=== PATIENT | male | born 1985 | race Caucasian/White ===

== ENCOUNTER 2018-12-20 10:59 | Emergency (ER) | payer MEDICAID ==
[~2018-12-20] VITALS: Ht 182.9 cm; Wt 102.3 kg
[~2018-12-20 10:59] MED LIST: CEPH250T PO; ONDA8TAB6 PO
[2018-12-20] MEDS ORDERED: LORazepam 2 mg/ml vial IM ONE (12:45)
[2018-12-20] MEDS ORDERED: haloperidol 5mg tablet PO PRN (12:45)
[2018-12-20] MEDS ORDERED: LORazepam 1 MG tablet PO PRN (12:45)
[2018-12-20] MEDS ORDERED: diphenhydrAMINE 25mg capsule PO PRN (12:45)
[2018-12-20] MEDS ORDERED: haloperidol lactate 5mg/ml inj IM ONE (12:45)
[2018-12-20] MEDS ORDERED: diphenhydrAMINE 50 mg/ml inj IM ONE (12:45)
[2018-12-20 12:54] LABS: BASOPHILS # (AUTO) 0.1 X10'3 (0-0.2); BASOPHILS % (AUTO) 0.4 % (0-1); EOSINOPHILS % (AUTO) 0.3 % (0-6); HEMATOCRIT 46.4 % (42.0-52.0); HEMOGLOBIN 15.4 g/dl (14.0-17.9); LYMPHOCYTES # (AUTO) 3.2 X10'3 (1.1-4.8); LYMPHOCYTES % (AUTO) 23.6 % (21-51); MEAN CORPUSCULAR HEMOGLOBIN 29.7 PG (27.0-31.0); MEAN CORPUSCULAR HGB CONC 33.3 g/dL (33.0-36.5); MEAN PLATELET VOLUME 8.1 FL (7.4-10.4); MONOCYTES % (AUTO) 7.6 % (2-12); NEUTROPHILS # (AUTO) 9.2 X10'3 (1.8-7.7); NEUTROPHILS % (AUTO) 68.1 % (42-75); PLATELET COUNT 243 X10'3 (140-440); RED BLOOD COUNT 5.21 X10'6 (4.70-6.10); RED CELL DISTRIBUTION WIDTH 13.5 % (11.5-14.5); WHITE BLOOD COUNT 13.5 X10'3 (4.5-11.0)
[2018-12-20 13:09] LABS: ALANINE AMINOTRANSFERASE 32 U/L (12-78); ALBUMIN 4.6 G/DL (3.4-5.0); ALBUMIN/GLOBULIN RATIO 1.3 (1.1-1.5); ALKALINE PHOSPHATASE 60 IU/L (46-116); ANION GAP 9 (8-16); ASPARTATE AMINO TRANSFERASE 41 U/L (10-37); BILIRUBIN,TOTAL 1.2 MG/DL (0.1-1.0); BLOOD UREA NITROGEN 28 MG/DL (7-18); BUN/CREATININE RATIO 17.5 (5.4-32.0); CALCIUM 9.2 MG/DL (8.5-10.1); CHLORIDE 97 MMOL/L (99-107); ETHANOL < 0.010 GM/DL (0.0-0.010); GLUCOSE 84 MG/DL (70-104); POTASSIUM 3.6 MMOL/L (3.5-5.1); SODIUM 133 MMOL/L (135-145); TOTAL CARBON DIOXIDE 26.6 MMOL/L (24-32); TOTAL PROTEIN 8.2 G/DL (6.4-8.2); eGFR 51 ML/MIN
--- NOTE | 2018-12-20 13:30 | NUR ---
Patient escorted from Bed E in Fast Track to Bed 26 in Overflow via ambulatory, accompanied by three security staff. Patient refusing to change into green gowns. "I'm not staying here. You don't understand. I got to get back to my job at the [employer]. I'm losing time. They'll make me do double the hours. They think I sent a beronica with the wrong truck 1100 miles away. They had to tell him to turn back. I didn't do it but they want to blame me. My father will tell you I know my stuff. He was a automobile tester for 14 years. He taught me all I need to know." Presents as highly agitated with rapid, pressured speech. His voice is loud with an aggressive tone. Patient's eyes are markedly red. States he was "dropped off here by my , my [id number] and my quarantine officer because of anger issues." Patient was medicated with Haldol 10 mg./Ativan 2mg./Benadryl 50 mg. IM at this time due increase comfort and decrease agitation.
--- NOTE | 2018-12-20 13:35 | NUR ---
Patient unable to cooperate with the interview process due to agitation.
--- NOTE | 2018-12-20 13:45 | NUR ---
Served lunch. Ate poorly. Stated "There's nothing I like on this tray."
--- NOTE | 2018-12-20 13:55 | NUR ---
Asleep at this time with the covers pulled over his head. Covers pulled down to check on patients color and breathing. Color and breathing WNL Patient pulled covers back over his head
[2018-12-20 13:57] LABS: CLARITY,URINE SLIGHTLY CLOUDY (Clear); COLOR,URINE YELLOW (Yellow); GLUCOSE, URINE NEGATIVE (Neg); KETONES,URINE 15 mg/dl (Neg); LEUKOCYTE ESTERASE ,URINE SMALL (Neg); NITRITES, URINE NEGATIVE (Neg); OCCULT BLOOD,URINE TRACE-INTACT (Neg); PROTEIN,URINE NEGATIVE (Neg); UROBILINOGEN,URINE 0.2 E.U/dL (0.2-1.0)
[2018-12-20 14:07] LABS: UA COLLECTION TYPE CLN CATCH MIDSTREAM
[2018-12-20 14:10] LABS: MUCUS STRANDS FEW /LPF (Neg); WBC CLUMPS,URINE MODERATE /HPF (NEGATIVE)
[2018-12-20 14:11] LABS: SQUAMOUS EPITHELIAL CELL,UR MODERATE /LPF (FEW); TRANSITIONAL EPI CELLS,URINE MODERATE /HPF
[2018-12-20 14:12] LABS: BACTERIA,URINE 1+ /HPF (Neg); RBC,URINE 0-2 /HPF (0-2); RENAL CELLS, URINE FEW /HPF
[2018-12-20 14:16] LABS: URINE AMPHETAMINE SCREEN POSITIVE (Neg); URINE BARBITUATE SCREEN NEGATIVE (Neg); URINE BENZODIAZEPINES SCREEN NEGATIVE (Neg); URINE CANNABINOID SCREEN POSITIVE (Neg); URINE COCAINE SCREEN NEGATIVE (Neg); URINE METHADONE SCREEN NEGATIVE (Neg); URINE OPIATE SCREEN NEGATIVE (Neg); URINE PHENCYCLIDINE SCREEN NEGATIVE (Neg)
--- NOTE | 2018-12-20 15:00 | NUR ---
Continues to sleep. Color and breathing WNL. Will continue to monitor.
--- NOTE | 2018-12-20 17:39 | NUR ---
Patient has slept the entire afternoon. He can be heard snoring from the nurse's station. Patient within line of sight of staff at all times.
--- NOTE | 2018-12-20 18:27 | NUR ---
PACKET FAXED TO [facility]
--- NOTE | 2018-12-20 19:33 | NUR ---
The patient continues focused on needing to go to work. He has very poor insight and judgement. He was encouraged to eat his dinner which he did.
--- NOTE | 2018-12-20 21:12 | NUR ---
The patient is up to the bathroom.
--- NOTE | 2018-12-20 23:47 | NUR ---
The patient appears to be sleeping
--- NOTE | 2018-12-21 01:41 | NUR ---
The patient appears to be asleep
--- NOTE | 2018-12-21 04:15 | NUR ---
The patient appears to be sleeping but is restless
[2018-12-21 06:01] VITALS: BP 101/54
--- NOTE | 2018-12-21 06:29 | NUR ---
Patient sleeping on right side. No distress observed. Continue to monitor.
--- NOTE | 2018-12-21 08:20 | NUR ---
[facility] evaluating patient. Continue to monitor.
--- NOTE | 2018-12-21 10:30 | NUR ---
[facility] re-evaluating patient. Continue to monitor.
--- NOTE | 2018-12-21 12:10 | NUR ---
Patient is sleeping on left side. No distress observed. Continue to monitor.
--- NOTE | 2018-12-21 13:40 | NUR ---
Patient's 1799 was removed. RN gave patient d/c instructions. Patient verbalized understanding. All questions were answered. Patient ambulatory, steady gait.
== END 2018-12-21 14:03 | disposition home or self-care (01) ==
LOC: ER 11:00
DX: F30.9 Manic episode, unspecified (principal); F15.10 Other stimulant abuse, uncomplicated; F17.200 Nicotine dependence, unspecified, uncomplicated; Z59.0 Homelessness; Z79.899 Other long term (current) drug therapy
CPT/HCPCS: 36415; 80053; 80305; 80320; 81001; 85025; 87088; 96372; 99284; J1200; J1630; J2060; Q0163

== ENCOUNTER 2018-12-31 19:22 | Emergency (ER) | payer MEDICAID ==
[~2018-12-31] VITALS: Ht 182.9 cm; Wt 70.0 kg
[2018-12-31 19:27] VITALS: BP 120/63
[2018-12-31] MEDS ORDERED: proparacaine 0.5% ophthalmic drops 15ml EACHEYE ONE (19:35)
[2018-12-31] MEDS ORDERED: ERYT1OIN6 RIGHTEYE (19:54)
[2019-01-01] MEDS ORDERED: CEPH-571 PO (15:47)
== END 2018-12-31 20:02 | disposition home or self-care (01) ==
LOC: ER 19:22
DX: S05.01XA Injury of conjunctiva and corneal abrasion without foreign body, right eye, initial encounter (principal); H92.02 Otalgia, left ear; F15.90 Other stimulant use, unspecified, uncomplicated; Z79.2 Long term (current) use of antibiotics; Z79.899 Other long term (current) drug therapy; Z59.0 Homelessness; W22.8XXA Striking against or struck by other objects, initial encounter; Y93.89 Activity, other specified; Y92.89 Other specified places as the place of occurrence of the external cause; Y99.8 Other external cause status
CPT/HCPCS: 99283

== ENCOUNTER 2019-01-01 15:38 | Emergency (ER) | payer MEDICAID ==
[~2019-01-01] VITALS: Ht 182.9 cm; Wt 100.0 kg
[~2019-01-01 15:38] MED LIST changes: +ERYT1OIN6 RIGHTEYE
[2019-01-01] MEDS ORDERED: CEPH-571 PO (15:47)
[2019-01-01 16:32] VITALS: BP 137/64
== END 2019-01-01 15:50 | disposition home or self-care (01) ==
LOC: ER 15:38
DX: S90.561A Insect bite (nonvenomous), right ankle, initial encounter (principal); L03.115 Cellulitis of right lower limb; F15.90 Other stimulant use, unspecified, uncomplicated; F17.200 Nicotine dependence, unspecified, uncomplicated; Z79.2 Long term (current) use of antibiotics; Z79.899 Other long term (current) drug therapy; Z59.0 Homelessness; W57.XXXA Bitten or stung by nonvenomous insect and other nonvenomous arthropods, initial encounter; Y93.89 Activity, other specified; Y92.89 Other specified places as the place of occurrence of the external cause; Y99.8 Other external cause status
CPT/HCPCS: 99283

== ENCOUNTER 2019-04-05 16:19 | Emergency (ER) | payer MEDICAID ==
[~2019-04-05 16:19] MED LIST changes: +CEPH-571 PO; -ERYT1OIN6 RIGHTEYE
== END 2019-04-05 17:33 | disposition left against medical advice (07) ==
LOC: ER 16:20
DX: A64 Unspecified sexually transmitted disease (principal); Z53.21 Procedure and treatment not carried out due to patient leaving prior to being seen by health care provider

== ENCOUNTER 2019-04-22 20:03 | Emergency (ER) | payer MEDICAID ==
[~2019-04-22] VITALS: Ht 182.9 cm; Wt 105.0 kg
[2019-04-22 20:06] VITALS: BP 140/85
--- NOTE | 2019-04-22 20:52 | NUR ---
Increased to level GENIE 3 for eval.
[2019-04-22 21:13] LABS: BASOPHILS # (AUTO) 0.1 X10'3 (0-0.2); BASOPHILS % (AUTO) 0.7 % (0-1); EOSINOPHILS # (AUTO) 0.2 X10'3 (0-0.9); EOSINOPHILS % (AUTO) 2.3 % (0-6); HEMATOCRIT 37.6 % (42.0-52.0); HEMOGLOBIN 12.8 g/dl (14.0-17.9); LYMPHOCYTES % (AUTO) 28.1 % (21-51); MEAN CORPUSCULAR HEMOGLOBIN 30.6 PG (27.0-31.0); MEAN CORPUSCULAR VOLUME 89.9 FL (78-98); MEAN PLATELET VOLUME 7.7 FL (7.4-10.4); MONOCYTES # (AUTO) 0.8 X10'3 (0-0.9); MONOCYTES % (AUTO) 7.9 % (2-12); NEUTROPHILS # (AUTO) 6.5 X10'3 (1.8-7.7); PLATELET COUNT 239 X10'3 (140-440); RED BLOOD COUNT 4.18 X10'6 (4.70-6.10); RED CELL DISTRIBUTION WIDTH 14.1 % (11.5-14.5); WHITE BLOOD COUNT 10.7 X10'3 (4.5-11.0)
[2019-04-22 21:29] LABS: ALANINE AMINOTRANSFERASE 29 U/L (12-78); ALBUMIN 3.5 G/DL (3.4-5.0); ALBUMIN/GLOBULIN RATIO 1.2 (1.1-1.5); ALKALINE PHOSPHATASE 88 IU/L (46-116); ANION GAP 11 (8-16); ASPARTATE AMINO TRANSFERASE 31 U/L (10-37); BILIRUBIN,TOTAL 0.2 MG/DL (0.1-1.0); BLOOD UREA NITROGEN 12 MG/DL (7-18); BUN/CREATININE RATIO 10.3 (5.4-32.0); C-REACTIVE PROTEIN 0.63 MG/DL (0.0-0.5); CALCIUM 8.1 MG/DL (8.5-10.1); CHLORIDE 107 MMOL/L (99-107); CREATININE 1.16 MG/DL (0.60-1.10); ETHANOL < 0.010 GM/DL (0.0-0.010); GLUCOSE 113 MG/DL (70-104); POTASSIUM 3.8 MMOL/L (3.5-5.1); SODIUM 142 MMOL/L (135-145); TOTAL CARBON DIOXIDE 24.1 MMOL/L (24-32); TOTAL PROTEIN 6.5 G/DL (6.4-8.2); eGFR 73 ML/MIN
[2019-04-22 22:31] LABS: CLARITY,URINE CLOUDY (Clear); COLOR,URINE YELLOW (Yellow); GLUCOSE, URINE NEGATIVE (Neg); KETONES,URINE NEGATIVE (Neg); LEUKOCYTE ESTERASE ,URINE SMALL (Neg); NITRITES, URINE NEGATIVE (Neg); OCCULT BLOOD,URINE NEGATIVE (Neg); PH,URINE 6.5 (4.8-8.0); PROTEIN,URINE NEGATIVE (Neg)
[2019-04-22 22:32] LABS: UA COLLECTION TYPE CLN CATCH MIDSTREAM
[2019-04-22 22:36] LABS: URINE AMPHETAMINE SCREEN POSITIVE (Neg); URINE BARBITUATE SCREEN NEGATIVE (Neg); URINE BENZODIAZEPINES SCREEN NEGATIVE (Neg); URINE CANNABINOID SCREEN POSITIVE (Neg); URINE COCAINE SCREEN NEGATIVE (Neg); URINE METHADONE SCREEN NEGATIVE (Neg); URINE OPIATE SCREEN NEGATIVE (Neg); URINE PHENCYCLIDINE SCREEN NEGATIVE (Neg)
[2019-04-22 22:37] LABS: BACTERIA,URINE FEW /HPF (Neg); MUCUS STRANDS MANY /LPF (Neg); RBC,URINE NONE SEEN /HPF (0-2); WBC,URINE 50-100 /HPF (0-4)
[2019-04-22 22:39] LABS: SQUAMOUS EPITHELIAL CELL,UR MANY /LPF (FEW)
[2019-04-22] MEDS ORDERED: LORazepam 1 MG tablet PO ONE (22:50)
[2019-04-22] MEDS ORDERED: LORazepam 0.5 MG tablet PO ONE (22:55)
[2019-04-22] MEDS ORDERED: diphenhydrAMINE 25mg capsule PO ONE (23:15)
[2019-04-22] MEDS ORDERED: haloperidol lactate 5mg/ml inj IM ONE (23:15)
--- NOTE | 2019-04-22 23:34 | NUR ---
PT VERY HIGH ENERGY, TALKATIVE, FLIGHT OF IDEAS, BUT COOPERATIVE. PT GIVEN SANDWICH AND JUICE. PT EDUCATED ON HOW TO CLEAN FOR A CLEAN CATCH UA, BUT CLEANSING WIPE UNOPENED WHEN PT PRESENTED NEW SAMPLE FOR LAB. URINE SENT.
[2019-04-22 23:38] LABS: COLOR,URINE YELLOW (Yellow); GLUCOSE, URINE NEGATIVE (Neg); KETONES,URINE NEGATIVE (Neg); LEUKOCYTE ESTERASE ,URINE SMALL (Neg); NITRITES, URINE NEGATIVE (Neg); OCCULT BLOOD,URINE NEGATIVE (Neg); PH,URINE 7.5 (4.8-8.0); PROTEIN,URINE NEGATIVE (Neg)
[2019-04-22 23:44] LABS: CLARITY,URINE SLIGHTLY CLOUDY (Clear); UA COLLECTION TYPE CLN CATCH MIDSTREAM
[2019-04-22 23:45] LABS: BACTERIA,URINE FEW /HPF (Neg); RBC,URINE NONE SEEN /HPF (0-2)
[2019-04-22 23:46] LABS: SQUAMOUS EPITHELIAL CELL,UR FEW /LPF (FEW)
[2019-04-23] MEDS ORDERED: azithromycin 250mg tablet PO ONE (00:50)
[2019-04-23] MEDS ORDERED: DOXY100C43 PO (00:50)
[2019-04-23] MEDS ORDERED: CefTRIAXone 250MG IM Kit w/LIDOcaine IM ONE (00:50)
[2019-04-24] MEDS ORDERED: DOXY100C43 PO (16:05)
== END 2019-04-23 01:29 | disposition home or self-care (01) ==
LOC: ER 20:04
DX: N39.0 Urinary tract infection, site not specified (principal); F15.10 Other stimulant abuse, uncomplicated; Z59.0 Homelessness; Z79.2 Long term (current) use of antibiotics; Z79.899 Other long term (current) drug therapy
CPT/HCPCS: 36415; 71045; 80053; 80305; 80320; 81001; 85025; 85651; 86140; 87088; 87491; 87591; 96372; 99284; J0696; J1630; Q0163

== ENCOUNTER 2019-04-24 15:04 | Emergency (ER) | payer MEDICAID ==
[~2019-04-24] VITALS: Ht 183.5 cm; Wt 81.0 kg
[~2019-04-24 15:04] MED LIST changes: +DOXY100C43 PO
[2019-04-24 15:20] VITALS: BP 126/77
[2019-04-24] MEDS ORDERED: DOXY100C43 PO (16:05)
--- NOTE | 2019-04-24 16:55 | NUR ---
Pt was seen, assessed, and treated by PA. Discharged by RN.
== END 2019-04-24 17:00 | disposition home or self-care (01) ==
LOC: ER 15:04
DX: N39.0 Urinary tract infection, site not specified (principal); F15.10 Other stimulant abuse, uncomplicated; R41.82 Altered mental status, unspecified; Z76.0 Encounter for issue of repeat prescription; Z59.0 Homelessness; Z79.899 Other long term (current) drug therapy
CPT/HCPCS: 99283

== ENCOUNTER 2019-05-07 21:34 | Emergency (ER) | payer MEDICAID ==
[~2019-05-07] VITALS: Ht 182.9 cm; Wt 88.8 kg
[~2019-05-07 21:34] MED LIST changes: -DOXY100C43 PO
[2019-05-07 21:41] VITALS: BP 133/89
== END 2019-05-07 23:15 | disposition home or self-care (01) ==
LOC: ER 21:34
DX: H92.02 Otalgia, left ear (principal); R06.02 Shortness of breath; F15.90 Other stimulant use, unspecified, uncomplicated; F17.200 Nicotine dependence, unspecified, uncomplicated; Z59.0 Homelessness; Z79.2 Long term (current) use of antibiotics; Z79.899 Other long term (current) drug therapy
CPT/HCPCS: 99281

== ENCOUNTER 2019-05-09 17:44 | Emergency (ER) | payer MEDICAID ==
[~2019-05-09] VITALS: Ht 182.9 cm; Wt 83.6 kg
[2019-05-09 17:58] VITALS: BP 123/56
[2019-05-09] MEDS ORDERED: IBUP-1984 PO (19:16)
--- NOTE | 2019-05-09 19:41 | NUR ---
Pt dc ready and wants taxi ride. I asked him where he was headed and he stated he was going home. Pt stated his dad had his car, but was sick and couldnt pick him up. Pt was advised he could call a taxi to transport him at his own expense. Pt then asked for a sandwich as well. Pt began pressuring staff to provide him a taxi ride and was told that we provide that for people who are homeless. Pt then stated "Oh, well I am on the streets" after clearly telling me that he had a home to go to. Pt escorted to lobby by Security.
== END 2019-05-09 19:46 | disposition home or self-care (01) ==
LOC: ER 17:45
DX: H92.02 Otalgia, left ear (principal); R42 Dizziness and giddiness; F15.90 Other stimulant use, unspecified, uncomplicated; Z59.0 Homelessness; Z79.899 Other long term (current) drug therapy
CPT/HCPCS: 99282

== ENCOUNTER 2020-02-07 16:40 | Emergency (ER) | payer MEDICAID ==
[~2020-02-07] VITALS: Ht 182.9 cm; Wt 78.0 kg
[~2020-02-07 16:40] MED LIST changes: -CEPH250T PO
[2020-02-07 16:42] VITALS: BP 141/71
[2020-02-07] MEDS ORDERED: azithromycin 250mg tablet PO ONE (19:30)
[2020-02-07] MEDS ORDERED: CefTRIAXone 250MG IM Kit w/LIDOcaine IM ONE (19:30)
== END 2020-02-07 20:43 | disposition home or self-care (01) ==
LOC: ER 16:41
DX: S42.002A Fracture of unspecified part of left clavicle, initial encounter for closed fracture (principal); A64 Unspecified sexually transmitted disease; M25.512 Pain in left shoulder; F17.200 Nicotine dependence, unspecified, uncomplicated; F15.90 Other stimulant use, unspecified, uncomplicated; Z59.0 Homelessness; Z79.2 Long term (current) use of antibiotics; Z79.899 Other long term (current) drug therapy; X58.XXXA Exposure to other specified factors, initial encounter; Y93.89 Activity, other specified; Y92.89 Other specified places as the place of occurrence of the external cause; Y99.8 Other external cause status
CPT/HCPCS: 36415; 73030; 87491; 87591; 96372; 99284; J0696

== ENCOUNTER 2020-02-12 01:30 | Emergency (ER) | payer MEDICAID ==
[~2020-02-12] VITALS: Ht 182.9 cm; Wt 75.0 kg
[2020-02-12] MEDS ORDERED: LIDOcaine 1% w/epiNEPHrine 1:200,000 30ml vial SQ ONE (01:45)
[2020-02-12] MEDS ORDERED: CEPH250T PO (02:21)
[2020-02-12 02:25] VITALS: BP 116/70
[2020-02-12] MEDS ORDERED: DOXY100C2 PO (17:35)
== END 2020-02-12 02:26 | disposition home or self-care (01) ==
LOC: ER 01:31
DX: S61.411A Laceration without foreign body of right hand, initial encounter (principal); F15.90 Other stimulant use, unspecified, uncomplicated; Z59.0 Homelessness; Z79.899 Other long term (current) drug therapy; W22.8XXA Striking against or struck by other objects, initial encounter; Y93.89 Activity, other specified; Y92.89 Other specified places as the place of occurrence of the external cause; Y99.8 Other external cause status
CPT/HCPCS: 12001; 73130; 99283

== ENCOUNTER 2020-02-12 14:49 | Emergency (ER) | payer MEDICAID ==
[~2020-02-12 14:49] MED LIST changes: +CEPH250T PO
--- NOTE | 2020-02-12 15:55 | NUR ---
PT WAS CALLED X3 TO MAIN ER, NIL, PT SEEN OUT BY THE BUS STOP AND WOULD NOT COME IN WHEN CALLED. PT DEPARTED LBT
--- NOTE | 2020-02-12 15:55 | NUR ---
Called to triage. Informed by registration that patient recieved bathroom code and then left.
[2020-02-12] MEDS ORDERED: DOXY100C2 PO (17:35)
== END 2020-02-12 16:55 | disposition left against medical advice (07) ==
LOC: ER 14:50
DX: S61.419A Laceration without foreign body of unspecified hand, initial encounter (principal); Z53.21 Procedure and treatment not carried out due to patient leaving prior to being seen by health care provider; X58.XXXA Exposure to other specified factors, initial encounter; Y93.9 Activity, unspecified; Y92.89 Other specified places as the place of occurrence of the external cause; Y99.8 Other external cause status

== ENCOUNTER 2020-02-12 16:27 | Emergency (ER) | payer MEDICAID ==
[~2020-02-12] VITALS: Ht 182.9 cm; Wt 90.9 kg
[2020-02-12 16:56] VITALS: BP 111/79
[2020-02-12] MEDS ORDERED: DOXY100C2 PO (17:35)
== END 2020-02-12 17:57 | disposition home or self-care (01) ==
LOC: ER 16:27
DX: S61.411D Laceration without foreign body of right hand, subsequent encounter (principal); F17.200 Nicotine dependence, unspecified, uncomplicated; F15.90 Other stimulant use, unspecified, uncomplicated; Z59.0 Homelessness; Z79.899 Other long term (current) drug therapy; X58.XXXD Exposure to other specified factors, subsequent encounter
CPT/HCPCS: 99283

== ENCOUNTER 2020-02-14 10:51 | Emergency (ER) | payer MEDICAID ==
[~2020-02-14] VITALS: Ht 182.9 cm; Wt 78.5 kg
[~2020-02-14 10:51] MED LIST changes: +DOXY100C2 PO
[2020-02-14] MEDS ORDERED: CEPH250T PO (11:51)
[2020-02-14 12:20] VITALS: BP 130/95
== END 2020-02-14 12:18 | disposition home or self-care (01) ==
LOC: ER 10:52
DX: F15.129 Other stimulant abuse with intoxication, unspecified (principal); Z59.0 Homelessness; Z79.899 Other long term (current) drug therapy
CPT/HCPCS: 99283

== ENCOUNTER 2020-02-24 02:31 | Emergency (ER) | payer MEDICAID ==
[~2020-02-24] VITALS: Ht 182.9 cm; Wt 95.5 kg
[~2020-02-24 02:31] MED LIST changes: -DOXY100C2 PO
[2020-02-24 02:35] VITALS: BP 140/88
== END 2020-02-24 03:02 | disposition left against medical advice (07) ==
LOC: ER 02:32
DX: H92.02 Otalgia, left ear (principal); Z53.21 Procedure and treatment not carried out due to patient leaving prior to being seen by health care provider

== ENCOUNTER 2021-07-21 09:58 | Emergency (ER) | payer MEDICAID ==
[~2021-07-21] VITALS: Ht 188 cm; Wt 81.8 kg
[~2021-07-21 09:58] MED LIST changes: -CEPH250T PO
[2021-07-21 10:03] VITALS: BP 126/80
[2021-07-21] MEDS ORDERED: proparacaine 0.5% ophthalmic drops 15ml EACHEYE ONE (10:10)
[2021-07-21] MEDS ORDERED: erythromycin ophthalmic ointment 1gm tube EACHEYE ONE (10:20)
[2021-07-21] MEDS ORDERED: ERYT1OIN6 EACHEYE (10:22)
== END 2021-07-21 10:35 | disposition home or self-care (01) ==
LOC: ER 09:58
DX: S05.01XA Injury of conjunctiva and corneal abrasion without foreign body, right eye, initial encounter (principal); S05.02XA Injury of conjunctiva and corneal abrasion without foreign body, left eye, initial encounter; F15.90 Other stimulant use, unspecified, uncomplicated; Z59.00 Homelessness unspecified; Z79.2 Long term (current) use of antibiotics; Z79.899 Other long term (current) drug therapy; X58.XXXA Exposure to other specified factors, initial encounter; Y93.89 Activity, other specified; Y92.89 Other specified places as the place of occurrence of the external cause; Y99.8 Other external cause status
CPT/HCPCS: 99283

== ENCOUNTER 2021-08-05 03:11 | Emergency (ER) | payer MEDICAID ==
[~2021-08-05 03:11] MED LIST changes: +ERYT1OIN6 EACHEYE
--- NOTE | 2021-08-05 03:24 | NUR ---
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
--- NOTE | 2021-08-05 03:26 | NUR ---
chest x ray at beside
[2021-08-05 03:36] LABS: BASOPHILS # (AUTO) 0.1 X10'3 (0-0.2); BASOPHILS % (AUTO) 1.2 % (0-1); EOSINOPHILS # (AUTO) 0.2 X10'3 (0-0.9); EOSINOPHILS % (AUTO) 1.8 % (0-6); HEMATOCRIT 43.2 % (42.0-52.0); HEMOGLOBIN 14.4 g/dl (14.0-17.9); LYMPHOCYTES # (AUTO) 2.8 X10'3 (1.1-4.8); LYMPHOCYTES % (AUTO) 32.6 % (21-51); MEAN CORPUSCULAR HEMOGLOBIN 29.2 PG (27.0-31.0); MEAN CORPUSCULAR HGB CONC 33.3 g/dL (33.0-36.5); MEAN CORPUSCULAR VOLUME 87.9 FL (78-98); MEAN PLATELET VOLUME 7.3 FL (7.4-10.4); MONOCYTES # (AUTO) 0.7 X10'3 (0-0.9); MONOCYTES % (AUTO) 8.2 % (2-12); NEUTROPHILS # (AUTO) 4.9 X10'3 (1.8-7.7); NEUTROPHILS % (AUTO) 56.2 % (42-75); PLATELET COUNT 340 X10'3 (140-440); RED BLOOD COUNT 4.92 X10'6 (4.70-6.10); RED CELL DISTRIBUTION WIDTH 13.5 % (11.5-14.5); WHITE BLOOD COUNT 8.7 X10'3 (4.5-11.0)
[2021-08-05 03:50] LABS: ALANINE AMINOTRANSFERASE 36 U/L (12-78); ALBUMIN 4.5 G/DL (3.4-5.0); ALBUMIN/GLOBULIN RATIO 1.3 (1.1-1.5); ALKALINE PHOSPHATASE 67 IU/L (46-116); ANION GAP 13 (8-16); ASPARTATE AMINO TRANSFERASE 46 U/L (10-37); BILIRUBIN,TOTAL 0.6 MG/DL (0.1-1.0); BLOOD UREA NITROGEN 24 MG/DL (7-18); BUN/CREATININE RATIO 18.3 (5.4-32.0); CALCIUM 9.5 MG/DL (8.5-10.1); CHLORIDE 105 MMOL/L (99-107); CREATININE 1.31 MG/DL (0.60-1.10); GLUCOSE 115 MG/DL (70-104); POTASSIUM 4.5 MMOL/L (3.5-5.1); SODIUM 141 MMOL/L (135-145); TOTAL CARBON DIOXIDE 23.4 MMOL/L (24-32); eGFR 63 ML/MIN
[2021-08-05 04:57] LABS: ETHANOL < 0.010 GM/DL (0.0-0.010)
[2021-08-05 05:02] VITALS: BP 127/71
== END 2021-08-05 05:18 | disposition home or self-care (01) ==
LOC: ER 03:12
DX: R07.89 Other chest pain (principal); F41.9 Anxiety disorder, unspecified; F15.10 Other stimulant abuse, uncomplicated; Z56.0 Unemployment, unspecified; Z59.00 Homelessness unspecified; Z79.2 Long term (current) use of antibiotics; Z79.899 Other long term (current) drug therapy
CPT/HCPCS: 36415; 71045; 80053; 80320; 83880; 84484; 85025; 93005; 99285

== ENCOUNTER 2021-08-10 07:46 | Emergency (ER) | payer MEDICAID ==
[~2021-08-10] VITALS: Ht 182.9 cm; Wt 95.5 kg
[2021-08-10 07:58] VITALS: BP 154/104
== END 2021-08-10 09:00 | disposition left against medical advice (07) ==
LOC: ER 07:47
DX: F41.9 Anxiety disorder, unspecified (principal); F32.9 Major depressive disorder, single episode, unspecified; Z76.0 Encounter for issue of repeat prescription; Z53.21 Procedure and treatment not carried out due to patient leaving prior to being seen by health care provider

== ENCOUNTER 2022-06-30 03:32 | Emergency (ER) | payer MEDICAID ==
[~2022-06-30] VITALS: Ht 182.9 cm; Wt 70.0 kg
[~2022-06-30 03:32] MED LIST changes: -ERYT1OIN6 EACHEYE
[2022-06-30 03:36] VITALS: BP 120/64
[2022-06-30] MEDS ORDERED: olanzapine 10mg tablet PO SCH (03:40)
== END 2022-06-30 03:45 | disposition home or self-care (01) ==
LOC: ER 03:33
DX: F15.10 Other stimulant abuse, uncomplicated (principal); M79.671 Pain in right foot; M79.672 Pain in left foot; Z59.00 Homelessness unspecified
CPT/HCPCS: 99283

== ENCOUNTER 2023-02-17 14:45 | Inpatient (IN) | payer MEDICAID ==
[~2023-02-17] VITALS: Ht 182.9 cm; Wt 81.1 kg
--- NOTE | 2023-02-17 15:41 | NUR ---
PATIENT IN RESTROOM CHANGING INTO GREENS AND GIVING A URINE SAMPLE
[2023-02-17 16:16] LABS: URINE AMPHETAMINE SCREEN POSITIVE (Neg); URINE BARBITUATE SCREEN NEGATIVE (Neg); URINE BENZODIAZEPINES SCREEN NEGATIVE (Neg); URINE CANNABINOID SCREEN NEGATIVE (Neg); URINE COCAINE SCREEN NEGATIVE (Neg); URINE METHADONE SCREEN NEGATIVE (Neg); URINE OPIATE SCREEN NEGATIVE (Neg); URINE PHENCYCLIDINE SCREEN NEGATIVE (Neg)
--- NOTE | 2023-02-17 16:17 | NUR ---
Pt brought over from ER main [facility] 16 bed to ER overflow bed 23 accompanied by RN.
--- NOTE | 2023-02-17 16:28 | NUR ---
Pt asked for food and was provided with a snack. Pt is demanding to take a shower. Offered warm bath wipes. Pt is indignant stating that there is a shower at [facility]. Pt admits to , pt is responding to internal stimuli. Pt is yelling at staff. Pt denies ever trying to hurt himself before today.
[2023-02-17 16:40] LABS: BASOPHILS # (AUTO) 0.1 X10'3 (0-0.2); EOSINOPHILS # (AUTO) 0.2 X10'3 (0-0.9); EOSINOPHILS % (AUTO) 1.6 % (0-6); HEMATOCRIT 41.3 % (42.0-52.0); HEMOGLOBIN 13.5 g/dl (14.0-17.9); LYMPHOCYTES # (AUTO) 2.8 X10'3 (1.1-4.8); LYMPHOCYTES % (AUTO) 24.5 % (21-51); MEAN CORPUSCULAR HEMOGLOBIN 28.1 PG (27.0-31.0); MEAN CORPUSCULAR HGB CONC 32.7 g/dL (33.0-36.5); MEAN CORPUSCULAR VOLUME 86.2 FL (78-98); MEAN PLATELET VOLUME 7.2 FL (7.4-10.4); MONOCYTES # (AUTO) 0.7 X10'3 (0-0.9); MONOCYTES % (AUTO) 6.5 % (2-12); NEUTROPHILS # (AUTO) 7.7 X10'3 (1.8-7.7); NEUTROPHILS % (AUTO) 66.4 % (42-75); PLATELET COUNT 429 X10'3 (140-440); RED BLOOD COUNT 4.79 X10'6 (4.70-6.10); RED CELL DISTRIBUTION WIDTH 14.8 % (11.5-14.5); WHITE BLOOD COUNT 11.6 X10'3 (4.5-11.0)
[2023-02-17 16:44] LABS: ALANINE AMINOTRANSFERASE 34 U/L (12-78); ALBUMIN 3.9 G/DL (3.4-5.0); ALKALINE PHOSPHATASE 79 IU/L (46-116); ANION GAP 7 (8-16); ASPARTATE AMINO TRANSFERASE 26 U/L (10-37); BILIRUBIN,TOTAL 0.3 MG/DL (0.1-1.0); BLOOD UREA NITROGEN 25 MG/DL (7-18); BUN/CREATININE RATIO 22.5 (10.0-20.0); CALCIUM 9.3 MG/DL (8.5-10.1); CHLORIDE 104 MMOL/L (99-107); CREATININE 1.11 MG/DL (0.60-1.10); GLUCOSE 82 MG/DL (70-104); POTASSIUM 4.1 MMOL/L (3.5-5.1); SODIUM 140 MMOL/L (135-145); TOTAL CARBON DIOXIDE 28.6 MMOL/L (24-32); eCRCL 101 ML/MIN; eGFR 75 ML/MIN
[2023-02-17 16:52] LABS: ETHANOL < 10 MG/DL (<10); THYROID STIMULATING HORMONE 8.24 ulU/ml (0.34-4.50)
[2023-02-17] MEDS ORDERED: NO HOME MEDS (16:58)
[2023-02-17 17:25] LABS: BILIRUBIN,URINE NEGATIVE (Neg); COLOR,URINE YELLOW (Yellow); GLUCOSE, URINE NEGATIVE (Neg); KETONES,URINE TRACE mg/dl (Neg); LEUKOCYTE ESTERASE ,URINE NEGATIVE (Neg); NITRITES, URINE NEGATIVE (Neg); OCCULT BLOOD,URINE NEGATIVE (Neg); PH,URINE 5.5 (4.8-8.0); PROTEIN,URINE NEGATIVE (Neg); UROBILINOGEN,URINE 0.2 E.U/dL (0.2-1.0)
[2023-02-17 17:32] LABS: CLARITY,URINE SLIGHTLY CLOUDY (Clear); UA COLLECTION TYPE NON-SPECIFIED
[2023-02-17 17:33] LABS: BACTERIA,URINE FEW /HPF (Neg); MUCUS STRANDS MANY /LPF (Neg); RBC,URINE 0-2 /HPF (0-2)
[2023-02-17 17:34] LABS: SQUAMOUS EPITHELIAL CELL,UR MODERATE /LPF (FEW)
--- NOTE | 2023-02-17 18:39 | NUR ---
Received pt lying in bed sleeping.
[2023-02-17] MEDS ORDERED: OLANZapine 2.5MG tablet PO ONE (20:10)
--- NOTE | 2023-02-17 20:19 | NUR ---
Pt woke up hungry, was provided sandwhich and fresh water pitcher. Pt responding to IS and making nonsensical statements. Pt labile talking about missing his kids and then laughing at a joke he shared with PCT. Provider notified and 5mg zyprexa given.
[2023-02-17] MEDS ORDERED: LORazepam 1 MG tablet PO PRN (20:30)
--- NOTE | 2023-02-17 20:34 | NUR ---
Received additional order of 2mg ativan.
[2023-02-17 20:52] LABS: FREE T4 (FREE THYROXINE) 0.88 NG/DL (0.73-1.40)
--- NOTE | 2023-02-17 22:01 | NUR ---
Packet faxed to [facility]
--- NOTE | 2023-02-17 23:45 | NUR ---
Pt appears to be sleeping
--- NOTE | 2023-02-18 01:30 | NUR ---
Pt appears to be sleeping
--- NOTE | 2023-02-18 03:35 | NUR ---
Pt up to the BR and back to bed. Sleeping
--- NOTE | 2023-02-18 05:06 | NUR ---
Pt appears to be sleeping.
--- NOTE | 2023-02-18 06:23 | NUR ---
Pt is in bed lying on his left side snoring.
--- NOTE | 2023-02-18 08:20 | NUR ---
Pt declines to eat breakfast at this time, prefers to sleep.
--- NOTE | 2023-02-18 10:14 | NUR ---
[facility] is at bedside evaluating patient.
--- NOTE | 2023-02-18 11:12 | NUR ---
[facility] determined that pt still meets criteria for 5150 for DTS.
--- NOTE | 2023-02-18 13:00 | NUR ---
Pt is lying in bed, he appears to be sleeping, respirations regular.
--- NOTE | 2023-02-18 13:22 | NUR ---
Pt woke up and ate his lunch. Fresh ice water provided.
--- NOTE | 2023-02-18 13:43 | NUR ---
Pt has been accepted by [facility].
--- NOTE | 2023-02-18 13:57 | NUR ---
Pt transferred upstairs to [facility] via w/c accompanied by Jake DAMIAN and , all belongings sent with the patient.
[2023-02-18] MEDS ORDERED: mag hydrox/Alum hydrox/simeth 30ml oral suspension PO PRN (14:20)
[2023-02-18] MEDS ORDERED: loperamide 2mg capsule PO PRN (14:20)
[2023-02-18] MEDS ORDERED: magnesium hydroxide 30ml (MOM) UD suspension PO PRN (14:20)
[2023-02-18] MEDS ORDERED: acetaminophen 325mg tablet PO PRN ×2 (14:20)
--- NOTE | 2023-02-18 14:32 | NUR ---
Admit note: Pt admitted to [place] [facility] today on 5150 for DTS from our ER at 1400. Pt was waiving a gun around and putting it in his mouth. Pt states he sees people. Pt has history of ADHD and depression.
[2023-02-18 15:03] VITALS: RESP 18; O2SAT 98
[2023-02-18 19:00] VITALS: RESP 15
[2023-02-18 19:27] VITALS: RESP 14; RESP 15
[2023-02-18 20:45] VITALS: RESP 15
--- NOTE | 2023-02-19 01:47 | NUR ---
RN PROGRESS NOTE: LEGAL HOLD: 5150 for DTS. PROBLEM: Client was waving a gun around and put it in his mouth. Paranoid delusions. Reported, "I see people." INTERVENTIONS: Therapeutic environment. Assessments. Administer medications. RESPONSE: Client has been sleeping soundly throughout shift (snoring). He did not wake up for snack. He has no PM meds. PLAN: Medication adjustment.
[2023-02-19 07:00] VITALS: RESP 18; O2SAT 97
[2023-02-19 08:00] VITALS: BP 138/77; PULSE 75; RESP 18; TEMP 98.6; O2SAT 97
[2023-02-19] MEDS ORDERED: olanzapine 10mg tablet PO ONE (13:35)
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
[2023-02-19 18:55] VITALS: RESP 15
[2023-02-19 19:22] VITALS: RESP 14
[2023-02-20 07:00] VITALS: RESP 18; O2SAT 99
[2023-02-20 08:37] VITALS: BP 130/74; PULSE 68; RESP 18; TEMP 98.6; O2SAT 99
[2023-02-20 08:40] LABS: CHOL/HDL RATIO 2.4 (0.00-4.99); CHOLESTEROL 144 MG/DL (0-200); HDL CHOLESTEROL 59 MG/DL (35-60); LDL CHOLESTEROL 74 MG/DL (50-100); TRIGLYCERIDES 54 MG/DL (20-135)
[2023-02-20 08:42] LABS: HEMOGLOBIN A1C 5.5 % (4.5-6.2)
[2023-02-20] MEDS ORDERED: hydrOXYzine 25 MG tablet PO PRN (12:25)
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
[2023-02-20 19:00] VITALS: RESP 17; O2SAT 99
[2023-02-20] MEDS: olanzapine 10mg tablet PO SCH (20:07)
[2023-02-20 20:35] VITALS: BP 121/73; PULSE 83; RESP 17; TEMP 98; O2SAT 99
[2023-02-20] MEDS: traZODone 50mg tablet PO SCH (21:00)
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
--- NOTE | 2023-02-21 04:55 | NUR ---
BULK PLANT OPERATOR documentation: I have reviewed all interventions, assessments performed and documented by Chelsea JENNINGS
[2023-02-21 07:00] VITALS: RESP 18; O2SAT 94
[2023-02-21] MEDS: ESCITALOPRAM OXALATE 5 MG TABLET PO SCH (07:47)
[2023-02-21 08:00] VITALS: BP 137/73; PULSE 72; RESP 18; TEMP 98.4; O2SAT 94
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
[2023-02-21 19:00] VITALS: RESP 16; O2SAT 96
[2023-02-21 19:20] VITALS: BP 109/55; PULSE 83; RESP 16; TEMP 97.8; O2SAT 96
[2023-02-21] MEDS: olanzapine 10mg tablet PO SCH (20:51)
[2023-02-21] MEDS: traZODone 50mg tablet PO SCH (20:52)
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
[2023-02-22 07:00] VITALS: RESP 16; O2SAT 94
[2023-02-22 08:00] VITALS: BP 142/79; PULSE 56; RESP 14; TEMP 97.8; O2SAT 97
[2023-02-22] MEDS: ESCITALOPRAM OXALATE 5 MG TABLET PO SCH (08:15)
--- NOTE | 2023-02-22 09:55 | NUR ---
Initial: Pt admit for SI. Currently on a regular diet and eating well, documented with 100% PO intake of all meals since 02/19 which is up from previous average 71% PO intake of first four meals. Pt receiving double protein TID since 02/19 per diet order, overall exceeding estimated nutrient needs. LBM 02/20 per EMR. No further nutrition intervention warranted at this time. Will continue to follow and make recommendations as appropriate. Recommendations: 1) Continue regular diet 2) Double eggs WB, double meat BIDLD per diet order 3) Bowel care PRN 4) Weekly scaled weights Addendum: 02/22/23 at [address] Amended: Links added.
--- NOTE | 2023-02-22 14:30 | NUR ---
CASE MANAGEMENT Spoke to Pt. today regarding what his discharge plan is. He reported he would like to go stay with his father (Reyes Nieto) who lives in [place]. This Nuisance Wildlife Trapper left his father a message on his voicemail to follow up to see if this is a viable discharge plan for Pt. Katharina Farley LCSW
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
[2023-02-22 19:00] VITALS: BP 111/63; PULSE 78; RESP 16; TEMP 98.2; O2SAT 96; O2SAT 97
[2023-02-22] MEDS: traZODone 50mg tablet PO SCH (19:47)
[2023-02-22] MEDS: LORazepam 1 MG tablet PO PRN (19:47)
[2023-02-22] MEDS: olanzapine 10mg tablet PO SCH (19:47)
[2023-02-22] MEDS: NICOTINE POLACRILEX 2 MG LOZENGE BC PRN (19:49)
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
[2023-02-23] MEDS: ESCITALOPRAM OXALATE 5 MG TABLET PO SCH (07:36)
[2023-02-23 08:00] VITALS: BP 154/82; PULSE 56; RESP 18; TEMP 97.9; O2SAT 97
[2023-02-23] MEDS: NICOTINE POLACRILEX 2 MG LOZENGE BC PRN ×2 (13:52→16:36)
--- NOTE | 2023-02-23 15:02 | NUR ---
CASE MANAGEMENT This Stress Analyst spoke to Pt's father today to verify if Pt can stay with him post discharge. His dad reported that the only way he would feel comfortable having him back with him is if he was engaging in a rehab program. This Stress Analyst spoke to Pt about this. Pt was half asleep in his bed and would barely look at this Stress Analyst while talking, he reported from under the sheet that he would like to stop using meth but will continue to use marijuana. He was interested in receiving a number for a rehab. This Stress Analyst left him info in regards to rehabs in the area for him to follow up with and explained to him that his dad would like to see him move in this direction before returning to stay with him. Pt was again asleep in his bed and took the info given to him. Katharina Farley LCSW
--- NOTE | 2023-02-23 15:03 | NUR ---
NURSING PROGRESS NOTE: Problem: Patient presented to the emergency room for evaluation of suicidal ideation. He was placed on a 5150 by police. It is reported that he was threatening to shoot himself in the mouth with a BB gun. He is currently on a 5250 for DTS Interventions: Introduced self and established rapport, maintained a safe and structured environment, ensured contract for safety, provided clear and simple instructions, attempted to orient to reality, and maintained Q 15min safety checks. Response: Pt. was up for breakfast and vitals this morning. He was compliant with meds. He refused to shower, hair is matted and unkempt, wearing clothing from yesterday and layers in his clothing. He needs heavy prompting to complete ADL's. He is eating and sleeping well. He denies SI/HI at this time, he denies A/V/H even though he was observed talking to himself in his bed stating, "I think we should gt a restaurant." Asked him how he was feeling and if he felt that others were still out to get him, he said, "Not as bad as yesterday but they are still holding on to me." Asked him who was holding on to him he stated, "I am not sure but they are after me for something they think I did but I didn't do." Asked what it was "they" think he did he said "I don't know but they want me." Asked him about his discharge plan he said, "I am going to go to my dads." Asked how he would provide for himself once there he said, "My dad will do it. He is going to sell his house and get another one." His current symptoms impair his ability to safely care for himself out in the community and put him at a high risk for re-hospitalization if discharged at this time. Plan: Cont. to require a safe and structured environment for further stabilization. His current symptoms impair his ability to formulate a safe and viable discharge plan. If discharged at this time he could be a high risk for safety and re-hospitalization.
[2023-02-23 19:00] VITALS: BP 135/82; PULSE 104; RESP 16; O2SAT 99
[2023-02-23] MEDS: LORazepam 1 MG tablet PO PRN (19:22)
[2023-02-23] MEDS: traZODone 50mg tablet PO SCH (19:22)
[2023-02-23] MEDS: olanzapine 10mg tablet PO SCH (19:22)
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
[2023-02-24] MEDS: ESCITALOPRAM OXALATE 5 MG TABLET PO SCH (07:06)
[2023-02-24 07:38] VITALS: BP 133/79; PULSE 73; RESP 20; TEMP 98.4; O2SAT 99
--- NOTE | 2023-02-24 09:43 | NUR ---
CASE MANAGEMENT Pt came to this Fractionation Supervisor asking for more information about rehabs in the area. He has spoken to Reyes, family friend who let him know that he cannot stay with him unless he is pursuing rehab. Gave Pt. number for Deepti to call to do intake for referrals to rehabs. Will continue to follow. FELIPE LangstonW
--- NOTE | 2023-02-24 16:14 | NUR ---
NURSING PROGRESS NOTE: Problem: Patient presented to the emergency room for evaluation of suicidal ideation. He was placed on a 5150 by police. It is reported that he was threatening to shoot himself in the mouth with a BB gun. He is currently on a 5250 for DTS Interventions: Maintained a safe and structured environment, ensured contract for safety, provided clear and simple instructions, attempted to orient to reality, and maintained Q 15min safety checks. Response: Pt. was up for breakfast and vitals this morning. He was compliant with meds. He refused to shower, hair is matted and unkempt, wearing clothing from yesterday and layers in his clothing. He needs heavy prompting to complete ADL's. Thought process is impaired, unconvincingly denies AH as he is observed talking to himself throughout the day. Reported VH I am seeing things that I cant describe when I am trying to go to sleep. Denies SI/HI. Cont. to experience paranoid delusions stating, They still have a hold on me, wish they would let go because I didnt do it. Asked him what he was referring to when he says he didnt do it, he said I dont know but they think I did it. Asked him his DC plan he states, My dad said I can go there to his house. Asked how he will provide for his daily needs he said, At my dads. Per SS note, His dad reported that the only way he would feel comfortable having him back with him is if he was engaging in a rehab program. When talking to the pt. about this he just replied with ya. -Appearance: casually groomed -Eye contact: fair -Mood: calm -Affect: congruent with mood -Speech: slurred and difficult to understand at times -Thought Process: Impaired -Thought content: delusions about people being after him -A/V/H: denies AH but stated I am seeing things that I cant describe when I am trying to go to sleep. -SI/HI: Denies all -ADLs: Needs prompting -Insight: poor -Judgement: poor - PRN: None administered Plan: Cont. to require a safe and structured environment for further stabilization. His current symptoms impair his ability to safely provide for himself out in the community or formulate a safe viable discharge plan. If discharged at this time he could be a high risk for safety and re-hospitalization. Addendum: 02/24/23 at 1622 by Francheska Garcia LVN For above statement on appearance: He is disheveled and unkempt.
[2023-02-24] MEDS: LORazepam 1 MG tablet PO PRN (19:47)
[2023-02-24 19:53] VITALS: BP 131/98; PULSE 103; RESP 18; TEMP 98.8; O2SAT 98
[2023-02-24] MEDS: traZODone 50mg tablet PO SCH (19:58)
[2023-02-24] MEDS: NICOTINE POLACRILEX 2 MG LOZENGE BC PRN (19:58)
[2023-02-24] MEDS: olanzapine 10mg tablet PO SCH (19:58)
[2023-02-24] MEDS: haloperidol 5mg tablet PO PRN (20:55)
[2023-02-25] MEDS: LORazepam 1 MG tablet PO PRN ×2 (04:10→21:46)
--- NOTE | 2023-02-25 04:56 | NUR ---
NURSING PROGRESS NOTE: Problem: Patient presented to the emergency room for evaluation of suicidal ideation. He was placed on a 5150 by police. It is reported that he was threatening to shoot himself in the mouth with a BB gun. He is currently on a 5250 for DTS Interventions: Maintained a safe and structured environment, ensured contract for safety, provided clear and simple instructions, attempted to orient to reality, and maintained Q 15min safety checks. Response: Pt was in dayroom at beginning of shift. He was in and out of the hallway and came back to his room for the 1:1 assessment. He was complaining about his dinner tray falling on the ground and told RN another one was coming. Pt states that he hears people and sees things but does not explain anything more about it, however pt is seen looking over across the empty room and saying quit laughing as if talking to someone that is not there. Pt denies any SI or HI but says he feels like something is in his left eye. He asks nurse to take a look for him, and nurse takes a good look and informs him nothing is visible in his eye. He states I just dont trust this [place] man, they do some crazy shit. He then proceeds to talk about hieroglyphics and how [place] has hieroglyphics that are like dragon ball Z hieroglyphics and one time I saw them late at night then I looked over and vignesh was there. During assessment when asked when his last BM was he stated well thats kind of a weird question to ask. RN explained it is a routine question that we ask every pt. Later on when pt was getting meds he asked RN if she was an actor and asked her if she was single. RN quickly said inappropriate question and pt didnt ask again. Pt received PRN Ativan and Haldol to help him calm down. Around 0415 Pt walked down hallway complaining that he woke up in cold sweat. He was stating he had a terrible nightmare and was given Ativan and new sheets and went back to sleep. His temporal temp was 97.8 Degrees Fahrenheit. Plan: Cont. to require a safe and structured environment for further stabilization. His current symptoms impair his ability to safely provide for himself out in the community or formulate a safe viable discharge plan. If discharged at this time he could be a high risk for safety and re-hospitalization.
[2023-02-25 07:00] VITALS: RESP 16; O2SAT 97
[2023-02-25 08:00] VITALS: BP 120/69; PULSE 87; RESP 16; TEMP 98; O2SAT 97
[2023-02-25] MEDS: ESCITALOPRAM OXALATE 5 MG TABLET PO SCH (08:13)
--- NOTE | 2023-02-25 14:56 | NUR ---
CASE MANAGEMENT Spoke with Pt. today. He has not called about the rehabs in the area. He walked away from this [employer] while we were speaking when this [employer] asked what his discharge plan was. Katharina Farley LCSW
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
[2023-02-25 19:30] VITALS: BP 123/73; PULSE 89; RESP 20; TEMP 97.9; O2SAT 98
[2023-02-25] MEDS: olanzapine 10mg tablet PO SCH (20:29)
[2023-02-25] MEDS: NICOTINE POLACRILEX 2 MG LOZENGE BC PRN (20:29)
[2023-02-25] MEDS: traZODone 50mg tablet PO SCH (20:29)
--- NOTE | 2023-02-26 04:28 | NUR ---
NURSING PROGRESS NOTE: Problem: Patient presented to the emergency room for evaluation of suicidal ideation. He was placed on a 5150 by police. It is reported that he was threatening to shoot himself in the mouth with a BB gun. He is currently on a 5250 for DTS Interventions: Maintained a safe and structured environment, ensured contract for safety, provided clear and simple instructions, attempted to orient to reality, and maintained Q 15min safety checks. Response: Pt was in day room and seen walking around the unit at start of shift. On assessment he denied AVH/SI/HI and was pleasant joking with RN. His conversation was more organized today although he brought up his past experience of seeing batman before and said he believed that the batman he saw was a ghost. Pt was compliant with all meds and agreeable to treatment. Pt was given Ativan around 2200 as pt stated he could not sleep and was getting visibly anxious stating I need an x-ray for my hernia. Pt slept after that and only got up one more time a few hours later to ask for some snacks and then went back to sleep. Pt wet the bed around 0200 but stated its just night sweats. Pt got up and took shower while full bed change occurred. Pt slept soundly after. Plan: Cont. to require a safe and structured environment for further stabilization. His current symptoms impair his ability to safely provide for himself out in the community or formulate a safe viable discharge plan. If discharged at this time he could be a high risk for safety and re-hospitalization.
[2023-02-26 07:00] VITALS: RESP 14; O2SAT 96
[2023-02-26 08:00] VITALS: BP 110/60; PULSE 79; RESP 14; TEMP 99.3; O2SAT 96
[2023-02-26] MEDS: ESCITALOPRAM OXALATE 5 MG TABLET PO SCH (08:34)
[2023-02-26] MEDS ORDERED: levoTHYROXINE 25mcg tablet PO ONE (15:00)
[2023-02-26] MEDS: NICOTINE POLACRILEX 2 MG LOZENGE BC PRN ×2 (15:26→19:44)
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
[2023-02-26 19:00] VITALS: BP 135/84; PULSE 101; RESP 16; TEMP 98.7; O2SAT 100
[2023-02-26] MEDS: olanzapine 10mg tablet PO SCH (19:44)
[2023-02-26] MEDS: LORazepam 1 MG tablet PO PRN (19:44)
[2023-02-26] MEDS: traZODone 50mg tablet PO SCH (19:45)
[2023-02-26] MEDS: haloperidol 5mg tablet PO PRN (19:47)
--- NOTE | 2023-02-27 05:22 | NUR ---
NURSING PROGRESS NOTE: Problem: Patient presented to the emergency room for evaluation of suicidal ideation. He was placed on a 5150 by police. It is reported that he was threatening to shoot himself in the mouth with a BB gun. He is currently on a 5250 for DTS Interventions: Maintained a safe and structured environment, ensured contract for safety, provided clear and simple instructions, attempted to orient to reality, and maintained Q 15min safety checks. Response: Pt is active on the unit walking and talking to peers. On assessment pt states he is having AVH saying its a blessing from God, and that I see a double dog galaxy, do you know what that is? Pt denies SI/HI, however when pt was in his room trying to put his street pants on over his scrub pants he became angry and was whacking the pants against his bedside table. As he did this he was mumbling in an aggressive manner at empty space next to him as if he was having a verbal altercation with someone. Pts meds were given early to help calm him down and he was given Ativan as well as Haldol. All pills were crushed. Pt then asked for a sandwich and went to his room. Pt has slept well through the night. Plan: Cont. to require a safe and structured environment for further stabilization. His current symptoms impair his ability to safely provide for himself out in the community or formulate a safe viable discharge plan. If discharged at this time he could be a high risk for safety and re-hospitalization.
[2023-02-27] MEDS: levoTHYROXINE 25mcg tablet PO SCH (07:00)
[2023-02-27 07:30] VITALS: RESP 16
[2023-02-27] MEDS: ESCITALOPRAM OXALATE 5 MG TABLET PO SCH (08:24)
[2023-02-27] MEDS: NICOTINE POLACRILEX 2 MG LOZENGE BC PRN ×2 (17:38→20:21)
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
[2023-02-27 19:00] VITALS: BP 130/64; PULSE 103; RESP 18; TEMP 98.8; O2SAT 97
[2023-02-27] MEDS: olanzapine 10mg tablet PO SCH (20:31)
[2023-02-27] MEDS: traZODone 50mg tablet PO SCH (20:32)
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
[2023-02-28 07:00] VITALS: BP 128/81; PULSE 66; RESP 16; TEMP 97.6; O2SAT 98
[2023-02-28 07:30] VITALS: RESP 16; O2SAT 98
[2023-02-28] MEDS: levoTHYROXINE 25mcg tablet PO SCH (07:54)
[2023-02-28] MEDS: ESCITALOPRAM OXALATE 5 MG TABLET PO SCH (07:55)
[2023-02-28] MEDS: NICOTINE POLACRILEX 2 MG LOZENGE BC PRN (09:50)
[2023-02-28] MEDS ORDERED: HYDR-3686 PO (11:57)
[2023-02-28] MEDS ORDERED: LEVO25TA7 PO (11:57)
[2023-02-28] MEDS ORDERED: ESCI-8 PO (11:57)
[2023-02-28] MEDS ORDERED: OLAN10TA73 PO (11:57)
[2023-02-28] MEDS ORDERED: TRAZ-251 PO (11:57)
[2023-02-28] MEDS ORDERED: NICO-907 BC (11:57)
--- NOTE | 2023-02-28 13:24 | NUR ---
DISCHARGE NOTE: Pt. discharged to [facility]. Pt. discharged with all belongings and valuables, pt. picked up by county bung driver. Pt. signed all discharge paperwork and acknowledged understanding of firearms restriction, emergency phone numbers including 911, and f/u plan and discharge medication. Pt. denies SI/HI, A/V hallucinations. Pt. is A&Ox4 and in no apparent distress.
== END 2023-02-28 13:24 | disposition home or self-care (01) | DRG 750 ==
LOC: ER 14:46 → ED HOLD 02-18 13:30 → ADULT MH 02-18 14:10
PROVIDERS: ADMIT Psychiatry & Neurology Psychiatry; ATTEND Psychiatry & Neurology Psychiatry
DX: F20.9 Schizophrenia, unspecified (principal); R45.851 Suicidal ideations; F32.9 Major depressive disorder, single episode, unspecified; Z20.822 Contact with and (suspected) exposure to COVID-19; F15.10 Other stimulant abuse, uncomplicated; F17.210 Nicotine dependence, cigarettes, uncomplicated; E03.9 Hypothyroidism, unspecified; Z56.0 Unemployment, unspecified; Z59.00 Homelessness unspecified; Z79.899 Other long term (current) drug therapy
CPT/HCPCS: 36415; 80053; 80061; 80305; 80320; 81001; 83036; 84439; 84443; 85025; 87081; 87088; 87811; 99285; A6250

== ENCOUNTER 2023-03-05 20:53 | Emergency (ER) | payer MEDICAID ==
[~2023-03-05] VITALS: Ht 182.9 cm; Wt 73.6 kg
[~2023-03-05 20:53] MED LIST changes: -CEPH-571 PO; +ESCI-8 PO; +HYDR-3686 PO; +LEVO25TA7 PO; +NICO-907 BC; +OLAN10TA73 PO; -ONDA8TAB6 PO; +TRAZ-251 PO
[2023-03-05] MEDS ORDERED: diphenhydrAMINE 50 mg/ml inj IM STA (21:10)
[2023-03-05] MEDS ORDERED: LORazepam 2 mg/ml vial IM STA (21:10)
[2023-03-05] MEDS ORDERED: haloperidol lactate 5mg/ml inj IM STA (21:10)
--- NOTE | 2023-03-05 21:10 | NUR ---
PT AGITATED UPON ARRIVAL AND ESCALATING W/ NO S/SX S/I, S/A. NO DELUSIONS NOTED. PT PRESENTS W/ SLURRED GARRBLED SPEECH. PT YELLING, "TAKE ME UPSTAIRS! I'M HUNGRY!" NOT REDIRECTIBLE. PROVIDER NOTIFIED W/ MEW MED ORDERS. CRN AWARE. PT PROVIDED W/ TURKEY SANDWICH AND WATER.
--- NOTE | 2023-03-05 21:11 | NUR ---
PT VERY AGITATED, TECHS AND SECURITY WITH THE PATIENT. HE COMES OUT OF HIS ROOM, HE IS VERY LOUD, NON DIRECTABLE.
[2023-03-05] MEDS ORDERED: haloperidol lactate 5mg/ml inj ONE (21:16)
--- NOTE | 2023-03-05 21:24 | NUR ---
PT CONTINUES TO YELL AND ATTEMPT TO WALK OUT OF ROOM CONTINUES TO STATE HE WANTS TO GO UPSTAIRS. CRN AWARE. SECURITY PRESENT. MEDS ADMIN PER ORDER W/ NO ASE THUS FAR. WILL CONT TO MONITOR.
[2023-03-05 21:56] LABS: BASOPHILS # (AUTO) 0.1 X10'3 (0-0.2); BASOPHILS % (AUTO) 1.1 % (0-1); EOSINOPHILS # (AUTO) 0.3 X10'3 (0-0.9); EOSINOPHILS % (AUTO) 3.2 % (0-6); HEMATOCRIT 34.3 % (42.0-52.0); HEMOGLOBIN 11.3 g/dl (14.0-17.9); LYMPHOCYTES # (AUTO) 2.5 X10'3 (1.1-4.8); LYMPHOCYTES % (AUTO) 28.1 % (21-51); MEAN CORPUSCULAR HEMOGLOBIN 28.6 PG (27.0-31.0); MEAN CORPUSCULAR HGB CONC 32.9 g/dL (33.0-36.5); MEAN CORPUSCULAR VOLUME 86.8 FL (78-98); MEAN PLATELET VOLUME 7.4 FL (7.4-10.4); MONOCYTES # (AUTO) 0.7 X10'3 (0-0.9); MONOCYTES % (AUTO) 7.6 % (2-12); NEUTROPHILS # (AUTO) 5.4 X10'3 (1.8-7.7); PLATELET COUNT 283 X10'3 (140-440); RED BLOOD COUNT 3.95 X10'6 (4.70-6.10); RED CELL DISTRIBUTION WIDTH 14.9 % (11.5-14.5)
[2023-03-05 22:13] LABS: ALANINE AMINOTRANSFERASE 37 U/L (12-78); ALBUMIN 3.6 G/DL (3.4-5.0); ALBUMIN/GLOBULIN RATIO 1.1 (1.1-1.5); ALKALINE PHOSPHATASE 66 IU/L (46-116); ANION GAP 6 (8-16); ASPARTATE AMINO TRANSFERASE 43 U/L (10-37); BILIRUBIN,TOTAL 0.5 MG/DL (0.1-1.0); BLOOD UREA NITROGEN 25 MG/DL (7-18); BUN/CREATININE RATIO 23.6 (10.0-20.0); CALCIUM 8.6 MG/DL (8.5-10.1); CHLORIDE 107 MMOL/L (99-107); CREATININE 1.06 MG/DL (0.60-1.10); ETHANOL < 10 MG/DL (<10); GLUCOSE 99 MG/DL (70-104); POTASSIUM 3.7 MMOL/L (3.5-5.1); SODIUM 138 MMOL/L (135-145); TOTAL CARBON DIOXIDE 25.2 MMOL/L (24-32); eCRCL 100 ML/MIN; eGFR 79 ML/MIN
--- NOTE | 2023-03-06 06:45 | NUR ---
Patient walked over from Main ED bed 13 to ED overflow bed 26. RN went to get patient a pitcher of water. When RN came back patient had thrown himself on the floor. Screaming at staff, yelling for a shower and food. Patient would not follow commands. Security assisted patient back to bed and patient continued. RN requested I.M. medication and will hold the P.O. Zyprexa this morning. Continue to monitor.
[2023-03-06] MEDS ORDERED: diphenhydrAMINE 50 mg/ml inj ONE (07:00)
[2023-03-06] MEDS ORDERED: LORazepam 2 mg/ml vial ONE (07:00)
[2023-03-06] MEDS: OLANZapine 5mg rapidly disint. tablet PO SCH ×3 (07:15→22:19)
[2023-03-06] MEDS ORDERED: haloperidol lactate 5mg/ml inj IM ONE (07:15)
--- NOTE | 2023-03-06 08:12 | NUR ---
Patient's breakfast at bedside. Patient is too drowsy to eat. Oxygen sat is between 96-100%. No distress observed. Continue to monitor.
--- NOTE | 2023-03-06 10:23 | NUR ---
Patient had not given a urine yet and urinated in the bed. RN and Tech Cleaned the bed and patient. Clean sheets and clean clothes given. Patient laid back down in bed and warm blanket given. No distress observed. Continue to monitor.
--- NOTE | 2023-03-06 12:07 | NUR ---
Lunch at bedside. Patient is very sleepy and not eating yet. Continue to monitor.
--- NOTE | 2023-03-06 13:25 | NUR ---
Patient continues to sleep and re-adjusts himself. No distress observed. Continue to monitor.
--- NOTE | 2023-03-06 15:29 | NUR ---
Patient sleeping on his right side. No distress observed. Continue to monitor.
--- NOTE | 2023-03-06 17:46 | NUR ---
RN and Trish Barrow, cleaned patient's bed and himself as he urinated on himself again. Patient was able to give a small amount of urine in the urinal which will be sent to lab. Patient is now sitting up in a clean, dry bed and eating dinner. Continue to monitor.
[2023-03-06 18:03] LABS: BILIRUBIN,URINE NEGATIVE (Neg); CLARITY,URINE SLIGHTLY CLOUDY (Clear); COLOR,URINE YELLOW (Yellow); GLUCOSE, URINE NEGATIVE (Neg); KETONES,URINE NEGATIVE (Neg); LEUKOCYTE ESTERASE ,URINE NEGATIVE (Neg); NITRITES, URINE NEGATIVE (Neg); OCCULT BLOOD,URINE TRACE-INTACT (Neg); PROTEIN,URINE NEGATIVE (Neg); UROBILINOGEN,URINE 0.2 E.U/dL (0.2-1.0)
[2023-03-06 18:05] LABS: UA COLLECTION TYPE CLN CATCH MIDSTREAM
[2023-03-06 18:08] LABS: MUCUS STRANDS FEW /LPF (Neg); SQUAMOUS EPITHELIAL CELL,UR FEW /LPF (FEW)
[2023-03-06 18:09] LABS: BACTERIA,URINE FEW /HPF (Neg); RBC,URINE 0-2 /HPF (0-2); WBC,URINE 0-4 /HPF (0-4)
[2023-03-06 18:16] LABS: URINE AMPHETAMINE SCREEN POSITIVE (Neg); URINE BARBITUATE SCREEN NEGATIVE (Neg); URINE BENZODIAZEPINES SCREEN NEGATIVE (Neg); URINE CANNABINOID SCREEN POSITIVE (Neg); URINE COCAINE SCREEN NEGATIVE (Neg); URINE METHADONE SCREEN NEGATIVE (Neg); URINE OPIATE SCREEN NEGATIVE (Neg); URINE PHENCYCLIDINE SCREEN NEGATIVE (Neg)
--- NOTE | 2023-03-06 18:20 | NUR ---
[facility] FAXED .
--- NOTE | 2023-03-06 19:33 | NUR ---
Patient sleeping on his left side. RN picking up his empty dinner tray (patient also had a sandwich). Patient sat up and re-adjusted. No distress observed. Continue to monitor.
[2023-03-06] MEDS ORDERED: ibuprofen 200mg tablet PO PRN (19:50)
--- NOTE | 2023-03-06 20:48 | NUR ---
Patient with snoring respirations. RN held Zyprexa due to incontinent 3Xs today. Will have RN resume tomorrow. No Distress observed. Continue to monitor.
[2023-03-06] MEDS ORDERED: acetaminophen 325mg tablet PO PRN (21:35)
[2023-03-06] MEDS ORDERED: HYDROcodone/acetaminophen 5mg/325mg tablet PO ONE (22:00)
--- NOTE | 2023-03-06 22:30 | NUR ---
Patient given [place] and hopefully he will sleep. No distress noted at the administration of his medication. Continue to monitor.
--- NOTE | 2023-03-06 22:44 | NUR ---
Patient appears to be sleeping. No distress observed. Continue to monitor.
--- NOTE | 2023-03-07 01:07 | NUR ---
Patient sleeping on his left side. No distress observed. Continue to monitor.
--- NOTE | 2023-03-07 02:01 | NUR ---
Patient sleeping on his left side. Patient re-adjusted as RN place another blanket over him. Continue to monitor.
--- NOTE | 2023-03-07 06:30 | NUR ---
Patient sleeping well with no s/sx of acute distress. Will continue to monitor.
--- NOTE | 2023-03-07 08:18 | NUR ---
Patient sleeping well with no s/sx of acute distress. Attempted to wake up for breakfast unsuccessfully. Patient snoring and in deep sleep. Respirations even and nonlabored. Will continue to monitor.
[2023-03-07] MEDS: OLANZapine 5mg rapidly disint. tablet PO SCH ×2 (09:02→20:24)
--- NOTE | 2023-03-07 10:43 | NUR ---
Patient sleeping. No s/sx of acute distress noted. Will continue to monitor.
--- NOTE | 2023-03-07 12:44 | NUR ---
Patient is sleeping on left side. Respirations even/nonlabored. No acute distress noted. Will continue to monitor.
--- NOTE | 2023-03-07 15:00 | NUR ---
Patient up and walking around unit. Calm and cooperative. Shower cap applied and hair brushed. Will continue to monitor.
--- NOTE | 2023-03-07 16:49 | NUR ---
Patient lying in bed without s/sx of acute distress. Will continue to monitor.
--- NOTE | 2023-03-07 18:35 | NUR ---
Received pt. from kenneth shift RN. Pt is finishing dinner. Pt in NAD. Pt calm and cooperative at this time.
--- NOTE | 2023-03-07 19:45 | NUR ---
Pt is sleeping on left side, RR even and non labored. Pt in NAD, will monitor for safety.
--- NOTE | 2023-03-07 20:43 | NUR ---
Pt medication compliant. Water pitcher refilled. Pt is guarded and refused to answer basic questions. Monitor for safety.
--- NOTE | 2023-03-07 22:33 | NUR ---
Pt sleeping in right side. NAD observed. RR even and unlabored. Monitor for safety.
--- NOTE | 2023-03-08 00:16 | NUR ---
Pt awake and used bathroiom. Snacks given. Pt in NAD, monitor for safety.
--- NOTE | 2023-03-08 02:42 | NUR ---
Pt asleep, RR even and unlabored. Pt in no acute distress, monitor for safety.
--- NOTE | 2023-03-08 03:59 | NUR ---
Patient sleeping on his right side. No distress observed. Continue to monitor.
--- NOTE | 2023-03-08 05:45 | NUR ---
Pt went back to sleep afterb VS were taken, resting quietly, continue to monitor for safety.
--- NOTE | 2023-03-08 07:02 | NUR ---
Pt asleep in bed lying supine. Respirations even and unlabored. No s/s of distress.
[2023-03-08] MEDS: OLANZapine 5mg rapidly disint. tablet PO SCH ×2 (07:56→19:15)
--- NOTE | 2023-03-08 09:08 | NUR ---
Pt lying in bed supine. Respirations even and unlabored. No s/s of distress.
--- NOTE | 2023-03-08 09:22 | NUR ---
Kervin Chauhan RN called for a nurse to nurse report.
--- NOTE | 2023-03-08 11:03 | NUR ---
Pt lying in bed supine and asleep. Respirations even and unlabored. No s/s of distress.
--- NOTE | 2023-03-08 12:23 | NUR ---
Pt eating lunch in bed. No s/s of distress.
--- NOTE | 2023-03-08 14:30 | NUR ---
Pt is asleep in bed lying on left side, sucking on thumb. Respirations even and unlabored. No s/s of distress.
--- NOTE | 2023-03-08 15:15 | NUR ---
Kervin Gonzales called. Spoke with RACHANA Chauhan and answered her questions about the patient.
--- NOTE | 2023-03-08 16:30 | NUR ---
Pt asleep in bed. No s/s of distress. Respirations even and unlabored.
--- NOTE | 2023-03-08 18:32 | NUR ---
Pt asleep in bed supine. Respirations even and unlabored. No s/s of distress.
--- NOTE | 2023-03-08 20:50 | NUR ---
Pt asleep in bed lying supine. Respirations even and unlabored. No s/s of distress.
--- NOTE | 2023-03-08 22:30 | NUR ---
Patient asleep in bed lying supine. Respirations even and unlabored. No s/s of distress.
--- NOTE | 2023-03-09 06:35 | NUR ---
Patient sleeping prone with slight snoring respirations. No distress observed. Continue to monitor.
--- NOTE | 2023-03-09 08:17 | NUR ---
Patient eating breakfast. No distress observed. Continue to monitor.
[2023-03-09] MEDS: OLANZapine 5mg rapidly disint. tablet PO SCH ×2 (08:38→20:00)
--- NOTE | 2023-03-09 10:35 | NUR ---
Patient sleeping. No distress observed. Patient has been getting up to use the BR since Tuesday Evening. Continue to monitor.
--- NOTE | 2023-03-09 12:09 | NUR ---
Patient eating lunch. No distress observed. Continue to monitor.
--- NOTE | 2023-03-09 13:39 | NUR ---
Patient sleeping supine. No distress observed. Continue to monitor.
--- NOTE | 2023-03-09 14:03 | NUR ---
Patient taken to shower by 2 Security guards and Trish Barrow. No distress observed. Continue to monitor.
--- NOTE | 2023-03-09 15:50 | NUR ---
Patient asking "Since I brought myself here can I release myself?" RN advised patient that he is on a legal hold but he will be re-evaluated tomorrow morning sometime. Patient verbalized understanding. Continue to monitor.
--- NOTE | 2023-03-09 17:41 | NUR ---
Patient with T.V. No distress observed. Continue to monitor.
--- NOTE | 2023-03-09 18:11 | NUR ---
Patient eating dinner. No distress observed. Continue to monitor.
--- NOTE | 2023-03-09 20:24 | NUR ---
Patient laying in bed. No distress observed. Continue to monitor.
--- NOTE | 2023-03-09 22:21 | NUR ---
Patient sleeping. No distress observed. Continue to monitor.
--- NOTE | 2023-03-10 01:24 | NUR ---
PT WOKE UP @0110, ASKED ME WHAT TIME IT WAS AND ASKED FOR SNACKS. PT STATES HE'S BEEN SLEEPING FOR "13 OR 14 HOURS AND STARVING". ADVISED HIM THAT THERE ARE NO MORE MEALS TO GIVE AT THIS TIME OF NIGHT AND GAVE HIM JELLO, APPLESAUCE AND CRACKERS. PT ATE SNACK, TOOK SHIRT OFF, WALKED AROUND THE UNIT AND THEN EVENTUALLY LAID BACK DOWN. PT NOW RESTING QUIETLY IN HIS BED.
--- NOTE | 2023-03-10 01:48 | NUR ---
Patient sleeping. No distress observed. Continue to monitor.
--- NOTE | 2023-03-10 03:48 | NUR ---
Patient asking for a nicotine lozenge. Patient does not have any orders for a lozenge. Continue to monitor.
--- NOTE | 2023-03-10 04:35 | NUR ---
PT UP AT NURSES STATION AGAIN. PRESENTS HIMSELF SHIRGABBYSS AND ASKS, "IS THIS RING WORM OR A SCAR?" - EGG CRATER SHINED LIGHT ON PT'S ARM TO EXAMINE AND DETERMINED IT IS A SCAR, NOT RING WORM. PT THEN ASKED FOR A WARM BLANKET. WARM BLANKET WAS GIVEN, PT WENT BACK TO ROOM AND LAID DOWN. CURRENTLY HE IS TALKING/SINGING TO HIMSELF.
--- NOTE | 2023-03-10 06:30 | NUR ---
Received pt. awake at the beginning of the shift, he appears restless and is requesting to leave. Will continue to monitor closely.
--- NOTE | 2023-03-10 07:30 | NUR ---
Pt. is on the telephone at this time pacing while he talks, he becomes loud at times requiring redirection.
--- NOTE | 2023-03-10 08:21 | NUR ---
Pt. is in his room eating at this time, he continues to talk on the phone.
[2023-03-10] MEDS: OLANZapine 5mg rapidly disint. tablet PO SCH (08:32)
--- NOTE | 2023-03-10 09:36 | NUR ---
1:1 was completed with pt. at bedside, he is A&O X3, not to reason here. Pt. states, "I could either come here or long term," however he was unable to elaborate on this upon further questioning. Pt. denies any current S/I, he states in a disorganized manner, "Playing frog, trying to cross the street. I didn't have shoes. Trying not to get cut by glass." He does endorse a history of S/I many years ago. Pt. denies any A/V/BENITES and no delusional statements were made. Pt's clothing and room present as very disheveled, with items strewn all over. He continues to be gravely disabled, but does have a possible plan for jail and may be able to return to living with his dad.
--- NOTE | 2023-03-10 09:59 | NUR ---
Pt. was able to take a short nap, but is now up and continues to be restless. He perseverates on his desire to discharge. Pt. is talking on the phone to his family and is hopeful that they will be able to provide support. He asks this staff the same questions repeatedly and remains disorganized.
--- NOTE | 2023-03-10 10:13 | NUR ---
[facility] at bedside evaluating pt. at this time. Addendum: 03/10/23 at 1052 by ADDIE [address] [facility], pt. will be discharged to his father who will be picking him up.
--- NOTE | 2023-03-10 10:45 | NUR ---
Pt. was discharged off the unit accompanied by staff and security to the vehicle of his father who will be driving him home. Pt's belongings were inventoried and returned to him by Tech. RN reviewed pt's discharge instructions and medications with him and he reported understanding. Pt. was provided with resources and is able to contract for safety.
[2023-03-10 11:01] VITALS: BP 134/87; PULSE 100; RESP 12; TEMP 97.2; O2SAT 97
== END 2023-03-10 11:05 | disposition home or self-care (01) ==
LOC: ER 20:53
DX: F19.150 Other psychoactive substance abuse with psychoactive substance-induced psychotic disorder with delusions (principal); Z20.822 Contact with and (suspected) exposure to COVID-19; F31.9 Bipolar disorder, unspecified; F15.10 Other stimulant abuse, uncomplicated
CPT/HCPCS: 36415; 80053; 80305; 80320; 81001; 85025; 87811; 96372; 99285; J1200; J1630; J2060

== ENCOUNTER 2023-04-18 03:31 | Emergency (ER) | payer MEDICAID ==
[~2023-04-18] VITALS: Ht 182.9 cm; Wt 63.2 kg
[2023-04-18 03:39] VITALS: BP 141/72; PULSE 92; RESP 16; TEMP 97.7; O2SAT 99
[2023-04-18] MEDS ORDERED: OLANZapine 2.5MG tablet PO STA (04:04)
== END 2023-04-18 04:27 | disposition home or self-care (01) ==
LOC: ER 03:32
DX: F22 Delusional disorders (principal); F15.10 Other stimulant abuse, uncomplicated; Z79.899 Other long term (current) drug therapy
CPT/HCPCS: 99283

== ENCOUNTER 2023-04-20 23:03 | Emergency (ER) | payer MEDICAID ==
[~2023-04-20] VITALS: Ht 182.9 cm; Wt 84.9 kg
[2023-04-20 23:11] VITALS: BP 125/89; PULSE 89; RESP 18; TEMP 97.8; O2SAT 99
== END 2023-04-20 23:58 | disposition left against medical advice (07) ==
LOC: ER 23:03
DX: M54.2 Cervicalgia (principal); Z53.21 Procedure and treatment not carried out due to patient leaving prior to being seen by health care provider
CPT/HCPCS: 99281